=== PATIENT | female | born 1990 | race Caucasian/White ===

== ENCOUNTER 2016-05-27 17:11 | Emergency (ER) | payer MEDICAID, OTHER ==
[2016-05-27] MEDS ORDERED: NS 0.9% 1000 ML* 1,000 ML IV ONE (18:31)
[2016-05-27] MEDS ORDERED: Ondansetron INJ* 2 MG/ML VIAL IV ONE (18:31)
[2016-05-27 19:01] LABS: Hematocrit 32 % (35-47); Hemoglobin 10.7 g/dl (12.0-16.0); Mean Corpuscular HGB Conc 33 g/dl (31-36); Mean Corpuscular Hemoglobin 30 pg (27-31); Mean Corpuscular Volume 90 fL (80-97); Mean Platelet Volume 10 um3 (7.4-10.4); Red Blood Count 3.57 10^6/ul (4.0-5.4); Red Cell Distribution Width 14 % (10.5-15); White Blood Count 7.2 10^3/ul (3.5-10.8)
[2016-05-27 19:15] LABS: Albumin 3.1 g/dL (3.2-5.2); BUN/Creatinine Ratio 13.5 (8-20); Calcium 8.2 mg/dL (8.6-10.3); EGFR African American 184.8 (>60); EGFR Non-African American 143.7 (>60); Globulin 3.8 g/dL (2-4); Potassium 3.2 mmol/L (3.5-5.0); Total Bilirubin 0.2 mg/dL (0.2-1.0); Total Protein 6.9 g/dL (6.4-8.9)
--- NOTE | 2016-05-27 19:49 | ED ---
Cassy Galloway Alok, scribed for Jeni Edwards MD on 05/27/16 at 1856 . Respiratory - HPI Summary HPI Summary: 25 y/o female presents to the ED for URI-like symptoms body aches, nasal congestion, fever, sore throat, productive cough, and N/V. Pt also adds lower back pain and kidney pain aggravated by movement and dysuria. Pt states that her cough had began 3 days ago and that her fever had reached a max of 100.4 F last night. Pt denies any diarrhea. Pt is currently 24 weeks and GPA = 4,3,0. - History of Current Complaint Chief Complaint: EDUpperRespComplaint Stated Complaint: UPPER RESPIRATORY COMPLAINT,VOMITING Time Seen by Provider: 05/27/16 17:45 Hx Obtained From: Patient Onset/Duration: Gradual Onset, Lasting Days, Still Present Timing: Constant Initial Severity: Moderate Current Severity: Moderate Pain Intensity: 7 Character: Cough (Productive) Aggravating Factor(s): Nothing Alleviating Factor(s): Nothing Associated Signs and Symptoms: Fever, Nasal Congestion - Allergy/Home Medications Allergies/Adverse Reactions: Allergies Allergy/AdvReac Type Severity Reaction Status Date / Time Sulfa Antibiotics Allergy Severe Unknown Verified 05/27/16 17:26 Reaction Details Latex Allergy Intermediate Rash Verified 05/27/16 17:26 ivory Allergy Intermediate Rash Uncoded 05/27/16 17:26 PMH/Surg Hx/FS Hx/Imm Hx Endocrine/Hematology History: Denies: Hx Diabetes, Hx Thyroid Disease Cardiovascular History: Denies: Hx Hypertension Respiratory History: Reports: Hx Asthma History: Denies: Hx Kidney Infection, Other Problems/Disorders Psychiatric History: Reports: Hx Depression Denies: Hx Anxiety, Other Psychiatric Issues/Disorders Infectious Disease History: No Infectious Disease History: Denies: Traveled Outside the [place] in Last 30 Days - Social History Occupation: Unemployed Lives: With Family Alcohol Use: None Substance Use Type: Reports: None Smoking Status (MU): Former Smoker Type: Cigarettes Have You Smoked in the Last Year: No Review of Systems Positive: Fever - 100.4 F max Positive: Sore Throat, Nasal Discharge Positive: Cough Positive: Vomiting, Nausea. Negative: Diarrhea Positive: dysuria, flank pain All Other Systems Reviewed And Are Negative: Yes Physical Exam Triage Information Reviewed: Yes Vital Signs On Initial Exam: Initial Vitals Temp Pulse Resp BP Pulse Ox 99.2 F 118 20 110/64 100 05/27/16 17:26 05/27/16 17:26 05/27/16 17:26 05/27/16 17:26 05/27/16 17:26 Vital Signs Reviewed: Yes Appearance: Positive: Well-Appearing, No Pain Distress Skin: Positive: Warm, Skin Color Reflects Adequate Perfusion, Dry Eyes: Positive: EOMI, MICHAEL ENT: Positive: Pharynx normal, Nasal congestion, TMs normal Neck: Positive: Supple, Nontender Respiratory/Lung Sounds: Positive: Clear to Auscultation, Breath Sounds Present. Negative: Rales, Rhonchi, Wheezes Cardiovascular: Positive: RRR. Negative: Murmur, Rub, Other - Gallops Abdomen Description: Positive: Soft, Other: - Left Flank Pain Bowel Sounds: Positive: Present Musculoskeletal: Positive: Strength/ROM Intact. Negative: Edema Left, Edema Right Neurological: Positive: Sensory/Motor Intact, Alert, Oriented to Person Place, Time, CN Intact II-III Psychiatric: Positive: Affect/Mood Appropriate Diagnostics - Vital Signs Vital Signs Temp Pulse Resp BP Pulse Ox 05/27/16 17:26 99.2 F 118 20 110/64 100 - Laboratory Lab Results: Lab Results 05/27/16 05/27/16 05/27/16 Range/Units 18:50 18:50 18:50 WBC 7.2 (3.5-10.8) 10^3/ul RBC 3.57 L (4.0-5.4) 10^6/ul Hgb 10.7 L (12.0-16.0) g/dl Hct 32 L (35-47) % MCV 90 (80-97) fL MCH 30 (27-31) pg MCHC 33 (31-36) g/dl RDW 14 (10.5-15) % Plt Count 162 (150-450) 10^3/ul MPV 10 (7.4-10.4) um3 Neut % (Auto) 79.6 (38-83) % Lymph % (Auto) 10.1 L (25-47) % Kerr % (Auto) 9.3 H (1-9) % Eos % (Auto) 0.8 (0-6) % Baso % (Auto) 0.2 (0-2) % Absolute Neuts (auto) 5.7 (1.5-7.7) 10^3/ul Absolute Lymphs (auto) 0.7 L (1.0-4.8) 10^3/ul Absolute Monos (auto) 0.7 (0-0.8) 10^3/ul Absolute Eos (auto) 0.1 (0-0.6) 10^3/ul Absolute Basos (auto) 0 (0-0.2) 10^3/ul Absolute Nucleated RBC 0.02 10^3/ul Nucleated RBC % 0.3 Sodium 133 (133-145) mmol/L Potassium 3.2 L (3.5-5.0) mmol/L Chloride 101 (101-111) mmol/L Carbon Dioxide 23 (22-32) mmol/L Anion Gap 9 (2-11) mmol/L BUN 7 (6-24) mg/dL Creatinine 0.52 (0.51-0.95) mg/dL Est GFR ( Amer) 184.8 (>60) Est GFR (Non-Af Amer) 143.7 (>60) BUN/Creatinine Ratio 13.5 (8-20) Glucose 82 (70-100) mg/dL Lactic Acid 0.5 (0.5-2.0) mmol/L Calcium 8.2 L (8.6-10.3) mg/dL Total Bilirubin 0.20 (0.2-1.0) mg/dL AST 23 (13-39) U/L ALT 14 (7-52) U/L Alkaline Phosphatase 75 (34-104) U/L Total Protein 6.9 (6.4-8.9) g/dL Albumin 3.1 L (3.2-5.2) g/dL Globulin 3.8 (2-4) g/dL Albumin/Globulin Ratio 0.8 L (1-3) Result Diagrams: 05/27/16 18:50 05/27/16 18:50 Lab Statement: Any lab studies that have been ordered have been reviewed, and results considered in the medical decision making process. Disposition - Course Course Of Treatment: 25 yo female non toxic appearing awaiting a urine and a flu swab for one day of fever and left flank pain with cough and rhinorrhea pt is 24 weeks . pt will be signed out to Dr. Ramirez - Diagnoses Provider Diagnoses: Fever Discharge - Discharge Plan Condition: Stable Disposition: HOME The documentation as recorded by the Cassy lechuga Alok accurately reflects the service I personally performed and the decisions made by me, Jeni Edwards MD.
[2016-05-27] MEDS ORDERED: Oseltamivir CAP* 75 MG PO ONE (20:35)
[2016-05-27 20:59] LABS: Urine Bacteria Absent (Absent); Urine Bilirubin Negative (Negative); Urine Glucose Negative (Negative); Urine Nitrite Negative (Negative)
[2016-05-27 21:06] VITALS: BP 124/67
== END 2016-05-27 21:05 | disposition home or self-care (01) ==
LOC: ED 17:11
DX: R50.9 Fever, unspecified (principal); R09.81 Nasal congestion; R11.2 Nausea with vomiting, unspecified; R06.02 Shortness of breath; R30.0 Dysuria; Z87.891 Personal history of nicotine dependence
CPT/HCPCS: 36415; 80053; 81003; 81015; 83605; 85025; 87040; 87086; 87502; 96374; 99282; A9270-GY

== ENCOUNTER 2016-09-09 07:21 | Inpatient (IN) | payer OTHER ==
[2016-09-09 08:54] LABS: Hematocrit 37 % (35-47); Hemoglobin 12.4 g/dl (12.0-16.0); Mean Corpuscular HGB Conc 34 g/dl (31-36); Mean Corpuscular Hemoglobin 31 pg (27-31); Mean Corpuscular Volume 91 fL (80-97); Mean Platelet Volume 11 um3 (7.4-10.4); Red Blood Count 4.05 10^6/ul (4.0-5.4); Red Cell Distribution Width 15 % (10.5-15); White Blood Count 10.2 10^3/ul (3.5-10.8)
[2016-09-09] MEDS ORDERED: Oxytocin in LR* 20 UNITS/1,000 ML BAG IVPB ONE (09:16)
[2016-09-09] MEDS ORDERED: Oxytocin in LR* 20 UNITS/1,000 ML BAG IVPB SCH (10:00)
[2016-09-09] MEDS ORDERED: OBEPIDURAL* 250 ML ONE (12:04)
[2016-09-09] MEDS ORDERED: Sodium Citrate/Citric Acid* 15 ML UDC PO PRN (12:35)
[2016-09-09] MEDS ORDERED: Famotidine TAB* 20 MG PO PRN (12:35)
[2016-09-09] MEDS ORDERED: Phenylephrine IV* 40 MCG/ML 10 ML SYRINGE IV PUSH PRN ×2 (12:35)
[2016-09-09] MEDS ORDERED: EPHEDrine (Pressors)* 50 MG/ML VIAL IV PUSH PRN ×2 (12:35)
[2016-09-09] MEDS ORDERED: OBEPIDURAL* 250 ML EPIDURAL SCH (13:00)
[2016-09-09] MEDS ORDERED: Dibucaine 1% 28.35 GM TUBE PR PRN (14:29)
[2016-09-09] MEDS ORDERED: Glycerin ADULT SUPP PR PRN (14:29)
[2016-09-09] MEDS ORDERED: Witch Hazel PAD* JAR TOPICAL PRN (14:29)
[2016-09-09] MEDS ORDERED: Acetaminophen TAB* 325 MG PO PRN (14:29)
[2016-09-09] MEDS ORDERED: Simethicone CHEW TAB* 80 MG PO SCH (17:30)
[2016-09-09] MEDS: Docusate CAP* 100 MG PO SCH (19:17)
[2016-09-09] MEDS: Ibuprofen TAB* 600 MG PO PRN (19:18)
[2016-09-10] MEDS: Ibuprofen TAB* 600 MG PO PRN ×3 (04:30→18:07)
[2016-09-10 07:14] LABS: Hematocrit 30 % (35-47); Hemoglobin 9.7 g/dl (12.0-16.0); Mean Corpuscular HGB Conc 33 g/dl (31-36); Mean Corpuscular Hemoglobin 30 pg (27-31); Mean Corpuscular Volume 93 fL (80-97); Mean Platelet Volume 11 um3 (7.4-10.4); Red Cell Distribution Width 15 % (10.5-15); White Blood Count 11.4 10^3/ul (3.5-10.8)
[2016-09-10] MEDS: Ferrous Gluconate TAB* 324 MG TAB PO SCH ×2 (09:06→20:04)
[2016-09-10] MEDS: Docusate CAP* 100 MG PO SCH ×3 (09:06→20:05)
[2016-09-10 19:33] VITALS: BP 96/57
[2016-09-11] MEDS: Ibuprofen TAB* 600 MG PO PRN (00:25)
[2016-09-11] MEDS: Docusate CAP* 100 MG PO SCH (08:27)
[2016-09-11] MEDS: Ferrous Gluconate TAB* 324 MG TAB PO SCH (08:28)
== END 2016-09-11 12:00 | disposition home or self-care (01) | DRG 560 ==
LOC: MCHOBOUT 07:21 → MCHOB 07:42
PROVIDERS: ADMIT Obstetrics & Gynecology; ATTEND Obstetrics & Gynecology
PROC: 10E0XZZ Delivery of Products of Conception, External Approach (ICD-10-PCS; principal; 2016-09-09)
PROC: 3E033VJ Introduction of Other Hormone into Peripheral Vein, Percutaneous Approach (ICD-10-PCS; 2016-09-09)
PROC: 10907ZC Drainage of Amniotic Fluid, Therapeutic from Products of Conception, Via Natural or Artificial Opening (ICD-10-PCS; 2016-09-09)
DX: O69.81X0 Labor and delivery complicated by cord around neck, without compression, not applicable or unspecified (principal); O99.344 Other mental disorders complicating childbirth; F32.9 Major depressive disorder, single episode, unspecified; O90.81 Anemia of the puerperium; D64.9 Anemia, unspecified; Z3A.39 39 weeks gestation of pregnancy; Z37.0 Single live birth
CPT/HCPCS: 36415; 85025; A9270-GY

== ENCOUNTER 2017-04-03 18:20 | Emergency (ER) | payer SELFPAY ==
[2017-04-03 20:50] LABS: ABS Basophils 0 10^3/ul (0-0.2); ABS Eosinophils 0.2 10^3/ul (0-0.6); ABS Lymphocytes 2.4 10^3/ul (1.0-4.8); ABS Monocytes 0.8 10^3/ul (0-0.8); ABS Neutrophils 2.4 10^3/ul (1.5-7.7); ABS Nucleated RBC 0 10^3/ul; Eosinophil % 3.4 % (0-6); Hematocrit 36 % (35-47); Hemoglobin 12.1 g/dl (12.0-16.0); Lymphocyte % 40.8 % (25-47); Mean Corpuscular HGB Conc 34 g/dl (31-36); Mean Corpuscular Hemoglobin 29 pg (27-31); Mean Corpuscular Volume 87 fL (80-97); Mean Platelet Volume 9 um3 (7.4-10.4); Nucleated Red Blood Cells % 0.1; Platelet Count 276 10^3/ul (150-450); Red Blood Count 4.11 10^6/ul (4.0-5.4); Red Cell Distribution Width 17 % (10.5-15); White Blood Count 5.9 10^3/ul (3.5-10.8)
[2017-04-03 21:00] LABS: Urine Appearance Cloudy; Urine Blood Negative (Negative); Urine Color Yellow; Urine Ketones Trace (Negative); Urine Protein Negative (Negative); Urine Specific Gravity 1.032 (1.010-1.030); Urine Urobilinogen Negative (Negative)
[2017-04-03 21:02] LABS: EGFR Non-African American 99.5 (>60)
[2017-04-03] MEDS ORDERED: Ketorolac INJ* 30 MG/ML 1 ML VIAL IV PUSH ONE (21:47)
[2017-04-03] MEDS ORDERED: NS 0.9% 1000 ML* 1,000 ML IV ONE (21:47)
[2017-04-03] MEDS ORDERED: Ketorolac INJ* 30 MG/ML 1 ML VIAL ONE (21:48)
[2017-04-03] MEDS ORDERED: Cyclobenzaprine TAB* 10 MG PO ONE (23:28)
[2017-04-03 23:47] VITALS: BP 111/74
--- NOTE | 2017-04-04 06:55 | ED ---
Kurtis Galloway Angela, scribed for Yury Newell MD on 04/03/17 at 2148 . Abdominal Pain/Female - HPI Summary HPI Summary: This pt is a 26 y/o female presenting to [facility] c/o left sided flank pain since last night. Pt reports her pain does not radiate. She states she now has bilateral flank pain. Her pain is aggravated with movement. She additionally notes she had hematuria yesterday. Pt denies dysuria, foul smelling urine, nausea, vomiting, diarrhea, fever, cough, congestion. Pt notes this pain feels like it is in between a UTI and kidney stone. LMP: 2 weeks ago. PMHx: Left kidney is smaller than the right, kidney stones, UTI. Pt states she has Mirena IUD placed. - History of Current Complaint Chief Complaint: EDFlankPain Stated Complaint: FLANK PAIN Time Seen by Provider: 04/03/17 21:36 Hx Obtained From: Patient Onset/Duration: Lasting Hours, Still Present Timing: Hours Severity Currently: Severe Pain Intensity: 8 Pain Scale Used: 0-10 Numeric Location: Flank - left Radiates: No Aggravating Factor(s): Movement Alleviating Factor(s): Nothing Associated Signs and Symptoms: Positive: Urinary Symptoms - POS: hematuria, Other: - NEG: dysuria. Negative: Fever, Cough, Nausea, Vomiting, Diarrhea Allergies/Adverse Reactions: Allergies Allergy/AdvReac Type Severity Reaction Status Date / Time Sulfa Antibiotics Allergy Severe Difficulty Verified 09/01/16 12:03 Breathing/Wheezing Latex Allergy Intermediate Rash Verified 05/27/16 17:26 ivory Allergy Intermediate Rash Uncoded 05/27/16 17:26 PMH/Surg Hx/FS Hx/Imm Hx Endocrine/Hematology History: Denies: Hx Diabetes, Hx Thyroid Disease Cardiovascular History: Denies: Hx Hypertension Respiratory History: Reports: Hx Asthma History: Reports: Hx Kidney Stones, Other Problems/Disorders - UTI Denies: Hx Kidney Infection Psychiatric History: Reports: Hx Depression Denies: Hx Anxiety, Other Psychiatric Issues/Disorders Infectious Disease History: No Infectious Disease History: Denies: Traveled Outside the [place] in Last 30 Days - Family History Known Family History: Positive: Hypertension - maternal grandmother, Diabetes - maternal grandmother, Other Family History: Brother: Scoliosis. Mother: Hep B - Social History Alcohol Use: None Substance Use Type: Reports: None Smoking Status (MU): Former Smoker Type: Cigarettes Have You Smoked in the Last Year: No Review of Systems Negative: Fever, Chills Negative: Other - congestion Negative: Cough Negative: Vomiting, Diarrhea, Nausea Positive: flank pain - left, hematuria. Negative: dysuria All Other Systems Reviewed And Are Negative: Yes Physical Exam - Summary Physical Exam Summary: Appearance: Well appearing, no pain distress Skin: warm, dry, reflects adequate perfusion Head/face: normal Eyes: EOMI, MICHAEL ENT: normal. Moist mucous membranes. Neck: supple, non-tender Respiratory: CTA, breath sounds present Cardiovascular: RRR, pulses symmetrical Abdomen: soft. nontender. Bowel: present Musculoskeletal: normal, strength/ROM intact. Left sided CVA tenderness. Neuro: normal, sensory motor intact, A&Ox3 Triage Information Reviewed: Yes Vital Signs On Initial Exam: Initial Vitals Temp Pulse Resp BP Pulse Ox 98.7 F 76 18 115/71 99 04/03/17 18:23 04/03/17 18:23 04/03/17 18:23 04/03/17 18:23 04/03/17 18:23 Vital Signs Reviewed: Yes Diagnostics - Vital Signs Vital Signs Temp Pulse Resp BP Pulse Ox 04/03/17 18:23 98.7 F 76 18 115/71 99 - Laboratory Lab Results: Lab Results 04/03/17 04/03/17 04/03/17 Range/Units 20:28 20:35 20:35 WBC 5.9 (3.5-10.8) 10^3/ul RBC 4.11 (4.0-5.4) 10^6/ul Hgb 12.1 (12.0-16.0) g/dl Hct 36 (35-47) % MCV 87 (80-97) fL MCH 29 (27-31) pg MCHC 34 (31-36) g/dl RDW 17 H (10.5-15) % Plt Count 276 (150-450) 10^3/ul MPV 9 (7.4-10.4) um3 Neut % (Auto) 41.7 (38-83) % Lymph % (Auto) 40.8 (25-47) % Porter % (Auto) 13.7 H (1-9) % Eos % (Auto) 3.4 (0-6) % Baso % (Auto) 0.4 (0-2) % Absolute Neuts (auto) 2.4 (1.5-7.7) 10^3/ul Absolute Lymphs (auto) 2.4 (1.0-4.8) 10^3/ul Absolute Monos (auto) 0.8 (0-0.8) 10^3/ul Absolute Eos (auto) 0.2 (0-0.6) 10^3/ul Absolute Basos (auto) 0 (0-0.2) 10^3/ul Absolute Nucleated RBC 0 10^3/ul Nucleated RBC % 0.1 Sodium 135 (133-145) mmol/L Potassium 4.0 (3.5-5.0) mmol/L Chloride 102 (101-111) mmol/L Carbon Dioxide 29 (22-32) mmol/L Anion Gap 4 (2-11) mmol/L BUN 13 (6-24) mg/dL Creatinine 0.71 (0.51-0.95) mg/dL Est GFR ( Amer) 128.0 (>60) Est GFR (Non-Af Amer) 99.5 (>60) BUN/Creatinine Ratio 18.3 (8-20) Glucose 91 (70-100) mg/dL Lactic Acid (0.5-2.0) mmol/L Calcium 8.8 (8.6-10.3) mg/dL Total Bilirubin 0.20 (0.2-1.0) mg/dL AST 18 (13-39) U/L ALT 11 (7-52) U/L Alkaline Phosphatase 93 (34-104) U/L C-Reactive Protein 5.57 H (< 5.00) mg/L Total Protein 7.6 (6.4-8.9) g/dL Albumin 3.9 (3.2-5.2) g/dL Globulin 3.7 (2-4) g/dL Albumin/Globulin Ratio 1.1 (1-3) Lipase 27 (11.0-82.0) U/L Urine Color Yellow Urine Appearance Cloudy Urine pH 5.0 (5-9) Ur Specific [place] 1.032 H (1.010-1.030) Urine Protein Negative (Negative) Urine Ketones Trace H (Negative) Urine Blood Negative (Negative) Urine Nitrate Negative (Negative) Urine Bilirubin Negative (Negative) Urine Urobilinogen Negative (Negative) Ur Leukocyte Esterase Trace H (Negative) Urine WBC (Auto) 1+(6-10/hpf) H (Absent) Urine RBC (Auto) Absent (Absent) Ur Squamous Epith Cells Present H (Absent) Urine Bacteria Absent (Absent) Urine Sperm Present H (Absent) Urine Glucose Negative (Negative) Urine Ascorbic Acid * H (Negative) 04/03/17 Range/Units 20:35 WBC (3.5-10.8) 10^3/ul RBC (4.0-5.4) 10^6/ul Hgb (12.0-16.0) g/dl Hct (35-47) % MCV (80-97) fL MCH (27-31) pg MCHC (31-36) g/dl RDW (10.5-15) % Plt Count (150-450) 10^3/ul MPV (7.4-10.4) um3 Neut % (Auto) (38-83) % Lymph % (Auto) (25-47) % Porter % (Auto) (1-9) % Eos % (Auto) (0-6) % Baso % (Auto) (0-2) % Absolute Neuts (auto) (1.5-7.7) 10^3/ul Absolute Lymphs (auto) (1.0-4.8) 10^3/ul Absolute Monos (auto) (0-0.8) 10^3/ul Absolute Eos (auto) (0-0.6) 10^3/ul Absolute Basos (auto) (0-0.2) 10^3/ul Absolute Nucleated RBC 10^3/ul Nucleated RBC % Sodium (133-145) mmol/L Potassium (3.5-5.0) mmol/L Chloride (101-111) mmol/L Carbon Dioxide (22-32) mmol/L Anion Gap (2-11) mmol/L BUN (6-24) mg/dL Creatinine (0.51-0.95) mg/dL Est GFR ( Amer) (>60) Est GFR (Non-Af Amer) (>60) BUN/Creatinine Ratio (8-20) Glucose (70-100) mg/dL Lactic Acid 0.6 (0.5-2.0) mmol/L Calcium (8.6-10.3) mg/dL Total Bilirubin (0.2-1.0) mg/dL AST (13-39) U/L ALT (7-52) U/L Alkaline Phosphatase (34-104) U/L C-Reactive Protein (< 5.00) mg/L Total Protein (6.4-8.9) g/dL Albumin (3.2-5.2) g/dL Globulin (2-4) g/dL Albumin/Globulin Ratio (1-3) Lipase (11.0-82.0) U/L Urine Color Urine Appearance Urine pH (5-9) Ur Specific [place] (1.010-1.030) Urine Protein (Negative) Urine Ketones (Negative) Urine Blood (Negative) Urine Nitrate (Negative) Urine Bilirubin (Negative) Urine Urobilinogen (Negative) Ur Leukocyte Esterase (Negative) Urine WBC (Auto) (Absent) Urine RBC (Auto) (Absent) Ur Squamous Epith Cells (Absent) Urine Bacteria (Absent) Urine Sperm (Absent) Urine Glucose (Negative) Urine Ascorbic Acid (Negative) Result Diagrams: 04/03/17 20:35 04/03/17 20:35 Lab Statement: Any lab studies that have been ordered have been reviewed, and results considered in the medical decision making process. - CT Abdomen/Pelvis CT CT Interpretation: No Acute Changes - IMPRESSION: Bilateral kidnys are unremarkable. No renal or ureter stone or obstruction is seen. No stones present in the urinary bladder lumen. IUD is in place in normal expected position. No adnexal mass, cyst, or abscess is seen. No bowel obstruction, perforation, free air or free fluid is demonstrated. Contracted gallbladder. No gallstones or bile duct dilatation demonstrated. No abnormal bowel wall thickening is noted to suggest colitis, diverticulitis, or inflammatory bowel disease. Normal appendix is visualized without evidenc of acute inflammation. Dr. Newell has reviewed this radiology report. CT Interpretation Completed By: Radiologist Re-Evaluation - Re-Evaluation First Eval Re-Evaluation Time: 23:25 Comment: Pt reports she is feeling better. I reviewed the CT results with the pt. Abdominal Pain Fem Course/Dx - Course Course Of Treatment: Hx of stones with flank pain. CT neg. Some minor inflammatory changes in urine. Start nitrofurantoin. Pain gone here. No pelvic discomfort. IUD in approp place. - Diagnoses Provider Diagnoses: Lumbar back pain, Flank pain Discharge - Discharge Plan Condition: Good Disposition: HOME Prescriptions: Cyclobenzaprine HCl [Flexeril 5 mg (NF)] 5 mg PO TID PRN #12 tab PRN Reason: Pain Patient Education Materials: Low Back Strain (ED) Forms: *Work Release Referrals: [facility] REFERRAL [Outside] Additional Instructions: Drink plenty of fluids, Ice, massage and range of motion exercises may help. Tylenol for mild discomfort. Return if worse, fever, vomiting or other concerns. The documentation as recorded by the Kurtis lechuga Angela accurately reflects the service I personally performed and the decisions made by me, Yury Newell MD.
--- NOTE | 2017-04-04 07:30 | RAD ---
INDICATION: Right flank abdominal pain. COMPARISON: Comparison is made to prior renal ultrasound from February 05, 2012. TECHNIQUE: A CT scan of the abdomen and pelvis was performed without intravenous or oral contrast. Contiguous axial sections were obtained from the lung bases through the symphysis pubis. Images were reconstructed in the coronal and sagittal planes. FINDINGS: The lung bases are clear. No pleural effusion is present. The liver and spleen are normal in size without significant focal abnormality on this noncontrast study. The gallbladder appears contracted. No calcified gallstones are seen. No pancreatic ductal distention or calcifications are seen. No inflammation is noted. The adrenal glands and kidneys are normal in size. No renal calculi or hydronephrosis is seen. No ureteral or bladder calculi are seen. The aorta is normal in caliber without significant calcific plaque. No significant enlarged retroperitoneal lymph nodes are seen. The stomach, small and large bowel appear nondistended. The appendix is within normal limits. There is mild descending and sigmoid diverticulosis without evidence for diverticulitis or colitis. There is a moderate amount retained stool present throughout the colon. There is a small periumbilical hernia containing fat. The uterus is anteverted and normal in size. There is an IUD which present. No free intraperitoneal air or fluid is seen. No significant focal osseous abnormality is seen. IMPRESSION: NO EVIDENCE FOR ACUTE INTRA-ABDOMINAL ABNORMALITY OR CAUSE FOR THE PATIENT'S ABDOMINAL PAIN IS SEEN.
== END 2017-04-03 23:46 | disposition home or self-care (01) ==
LOC: ED 18:20
DX: M54.5 Low back pain (principal); R10.84 Generalized abdominal pain; R31.9 Hematuria, unspecified; R30.0 Dysuria; Z87.442 Personal history of urinary calculi
CPT/HCPCS: 36415; 74176; 80053; 81003; 81015; 83605; 83690; 85025; 86140; 87086; 99283; A9270-GY; J1885

== ENCOUNTER 2017-05-23 17:26 | Emergency (ER) | payer SELFPAY ==
[2017-05-23] MEDS ORDERED: Ondansetron ODT TAB* 4 MG PO ONE (18:10)
[2017-05-23] MEDS ORDERED: Acetaminophen ADULT LIQ* 650 MG/20.3 ML UDC PO ONE (18:10)
--- NOTE | 2017-05-23 20:06 | ED ---
Influenza-Like Illness - HPI Summary HPI Summary: Patient here with "flulike" symptoms since yesterday. She reports fever, minor cough, and sore throat which is worse today. She is having significant dysphasia to the point where she's not tried any meds for her fever as a hurts too much to swallow. She is handling her secretions well and denies respiratory distress. She also reports myalgias, headache, decreased appetite and overall fatigue. Denies rashes, neck stiffness, nausea, vomiting, diarrhea. Admits she had influenza earlier this year. She did not have her influenza vaccine as this "causes me to get the flu" but all other immunizations are up-to-date. She last had Tylenol yesterday morning. She also has a history of asthma however reports she does not feel that she has asthma symptoms over the little chest tightness at this point in time. She has not tried an albuterol inhaler however encourages her to try this. She has 4 children, 2 and school (>2 y.o.) and 2 at home (<2 y.o.). Her 8-month- old is here tonight as well with 3 day history of mild URI symptoms without a fever. - History of Current Complaint Chief Complaint: EDFluSymptoms Time Seen by Provider: 05/23/17 17:46 Hx Obtained From: Patient - - Allergy/Home Medications Allergies/Adverse Reactions: Allergies Allergy/AdvReac Type Severity Reaction Status Date / Time ibuprofen Allergy Hives/Diff. Verified 05/23/17 18:39 Breathing/I tching latex Allergy Rash Verified 05/23/17 17:31 Sulfa (Sulfonamide Allergy Anaphylatic Verified 05/23/17 17:31 Antibiotics) Shock ivory Allergy Intermediate Rash Uncoded 05/27/16 17:26 PMH/Surg Hx/FS Hx/Imm Hx Previously Healthy: Yes Endocrine/Hematology History: Denies: Hx Diabetes, Hx Thyroid Disease Cardiovascular History: Denies: Hx Hypertension Respiratory History: Reports: Hx Asthma - well controlled History: Reports: Hx Kidney Stones, Other Problems/Disorders - UTI Denies: Hx Kidney Infection Sensory History: Reports: Hx Contacts or Glasses Opthamlomology History: Reports: Hx Contacts or Glasses Psychiatric History: Reports: Hx Depression Denies: Hx Anxiety, Other Psychiatric Issues/Disorders - Immunization History Date of Influenza Vaccine: fall 2016 Immunizations Up to Date: Yes - EXCEPT influenza Infectious Disease History: No Infectious Disease History: Denies: Traveled Outside the [place] in Last 30 Days - Family History Known Family History: Positive: Hypertension - maternal grandmother, Diabetes - maternal grandmother, Other Family History: Brother: Scoliosis. Mother: Hep B - Social History Occupation: Unemployed - stay at home mom Lives: With Family Alcohol Use: Rare Hx Substance Use: No Substance Use Type: Reports: None Hx Tobacco Use: No - not currently Smoking Status (MU): Former Smoker Type: Cigarettes Have You Smoked in the Last Year: No Review of Systems Constitutional: Negative Positive: Fever, Fatigue Eyes: Negative Positive: Sore Throat. Negative: Dental Pain, Ear Ache, Nasal Discharge Cardiovascular: Negative Negative: Palpitations, Chest Pain Positive: Cough - mild, intermittent Gastrointestinal: Negative Positive: no symptoms reported Positive: Arthralgia, Myalgia Skin: Negative Positive: Headache. Negative: Weakness, Paresthesia, Numbness, Syncope, Slurred Speech Psychological: Normal All Other Systems Reviewed And Are Negative: Yes Physical Exam Triage Information Reviewed: Yes Vital Signs On Initial Exam: Initial Vitals Temp Pulse Resp BP Pulse Ox 99.1 F 117 16 111/72 100 05/23/17 17:31 05/23/17 17:31 05/23/17 17:31 05/23/17 17:31 05/23/17 17:31 Vital Signs Reviewed: Yes Appearance: Positive: Well-Appearing - appears mildly fatigued but otherwise conversing well with strength to move, etc, Well-Nourished, Pain Distress - mild Skin: Positive: Warm, Skin Color Reflects Adequate Perfusion, Dry - no rash Head/Face: Positive: Normal Head/Face Inspection Eyes: Positive: Normal, EOMI, Conjunctiva Clear. Negative: Conjunctiva Inflammed, Discharge ENT: Positive: Normal ENT inspection, Hearing grossly normal, TMs normal, Tonsillar swelling - edema (+2-3, cryptic) w/ mild erythema, Uvula midline. Negative: Nasal congestion, Nasal drainage, Tonsillar exudate, Trismus, Muffled voice, Hoarse voice, Sinus tenderness Neck: Positive: Supple, No Lymphadenopathy, Tenderness @ - CC LN's Respiratory/Lung Sounds: Positive: Clear to Auscultation, Breath Sounds Present. Negative: Decreased Breath Sounds, Rales, Rhonchi, Stridor, Tracheal Deviation, Wheezes, Unable to speak in full sentences, Fatigue Cardiovascular: Positive: Normal, Pulses are Symmetrical in both Upper and Lower Extremities, Tachycardia, S1, S2. Negative: Murmur, Rub Abdomen Description: Positive: Nontender, No Organomegaly, Soft Bowel Sounds: Positive: Present Musculoskeletal: Positive: Normal, Strength/ROM Intact Neurological: Positive: Normal, Sensory/Motor Intact, Alert, Oriented to Person Place, Time, CN Intact II-III Psychiatric: Positive: Normal Diagnostics - Vital Signs Vital Signs Temp Pulse Resp BP Pulse Ox 05/23/17 19:35 98.5 F 82 16 112/72 96 05/23/17 17:31 99.1 F 117 16 111/72 100 - Laboratory Lab Results: Lab Results 05/23/17 05/23/17 Range/Units 19:03 19:18 Influenza A (Rapid) Negative (Negative) Influenza B (Rapid) Negative (Negative) Group A Strep Rapid Positive A (Negative) Lab Statement: Any lab studies that have been ordered have been reviewed, and results considered in the medical decision making process. Flu Symptom Course/Dx - Course Course Of Treatment: Patient presents with fever and upper respiratory symptoms. Her influenza swab was negative however her strep swab is positive. Will initiate treatment and educated on supportive care. Advised on danger signs and symptoms of when to return to the emergency department. Patient agrees with plan. - Diagnoses Provider Diagnoses: Strep pharyngitis Discharge - Discharge Plan Condition: Stable Disposition: HOME Prescriptions: Albuterol HFA INHALER* [Ventolin HFA Inhaler*] 2 puff INH Q6H PRN #1 mdi PRN Reason: Cough Amoxicillin PO (*) [Amoxicillin 500 MG CAP*] 500 mg PO Q12H #20 cap Patient Education Materials: Strep Throat (ED) Referrals: No Primary Care Phys,NOPCP [Primary Care Provider] - Additional Instructions: You appear to have strep throat. Please review the education information provided for supportive care and treatment of symptoms. Compelte antibiotics as directed. If your symptoms persist or worsen beyond 4 days, follow up with her primary care physician. If you have difficulty breathing or swallowing in the meantime, return to the emergency department. NOTE: An albuterol inhaler was also sent to the pharmacy in the event that you need this for chest tightness, persistent cough, wheezing. Again if this is not controlled with albuterol, please return to the emergency department.
[2017-05-23 20:32] VITALS: BP 108/61
== END 2017-05-23 20:30 | disposition home or self-care (01) ==
LOC: ED 17:26
DX: J02.0 Streptococcal pharyngitis (principal); F32.9 Major depressive disorder, single episode, unspecified; Z87.891 Personal history of nicotine dependence
CPT/HCPCS: 87502; 87651; 99282; A9270-GY

== ENCOUNTER 2017-11-16 16:54 | Emergency (ER) | payer MEDICAID, OTHER ==
--- NOTE | 2017-11-16 17:50 | ED ---
- HPI Summary HPI Summary: This patient is a 27 year old F presenting to [facility] accompanied by her partner with a chief complaint of ABD pain that began 2 days ago that was worse today. The patient rates the pain 8/10 in severity. Patient reports dysuria and lower back pressure. Pt is 30 weeks . - History of Current Complaint Chief Complaint: EDAbdPain Stated Complaint: 7 MOS PREG/PAIN IN LOWER ABD & BACK Time Seen by Provider: 11/16/17 17:27 Hx Obtained From: Patient Chief Complaint: Pain, Other: - cocern Onset/Duration: Still Present Timing: Constant Severity: Severe Current Severity: Severe Pain Intensity: 8 Location of Pain: Suprapubic Character: Burning, Cramping Associated Signs and Symptoms: Positive: Other: - dysuria and lower back pressure - Assessment SAB: 0 IEA: 0 - Additional Pertinent History Maternal Blood Type and Rh: O Positive - Allergies/Home Medications Allergies/Adverse Reactions: Allergies Allergy/AdvReac Type Severity Reaction Status Date / Time ibuprofen Allergy Severe Hives/Diff. Verified 11/16/17 17:02 Breathing/I tching latex Allergy Severe Rash Verified 11/16/17 17:02 Sulfa (Sulfonamide Allergy Severe Anaphylatic Verified 11/16/17 17:02 Antibiotics) Shock aloe Allergy Intermediate Rash Verified 11/16/17 17:02 ivory Allergy Intermediate Rash Uncoded 11/16/17 17:01 PMH/Surg Hx/FS Hx/Imm Hx Endocrine/Hematology History: Denies: Hx Diabetes, Hx Thyroid Disease Cardiovascular History: Denies: Hx Congestive Heart Failure, Hx Hypertension Respiratory History: Reports: Hx Asthma - well controlled History: Reports: Hx Kidney Stones, Other Problems/Disorders - UTI Denies: Hx Kidney Infection Sensory History: Reports: Hx Contacts or Glasses Opthamlomology History: Reports: Hx Contacts or Glasses Psychiatric History: Reports: Hx Depression Denies: Hx Anxiety, Other Psychiatric Issues/Disorders - Immunization History Date of Influenza Vaccine: fall 2016 Infectious Disease History: No Infectious Disease History: Denies: Traveled Outside the [place] in Last 30 Days - Family History Known Family History: Positive: Hypertension - maternal grandmother, Diabetes - maternal grandmother, Other Family History: Brother: Scoliosis. Mother: Hep B - Social History Alcohol Use: Rare Hx Substance Use: No Substance Use Type: Reports: None Hx Tobacco Use: No - not currently Smoking Status (MU): Former Smoker Type: Cigarettes Have You Smoked in the Last Year: No Review of Systems Positive: Abdominal Pain Positive: dysuria Positive: Other - lower back pressure All Other Systems Reviewed And Are Negative: Yes Physical Exam - Summary Physical Exam Summary: Appearance: The patient is well-nourished in no acute distress and in no acute pain. Skin: The skin is warm and dry and skin color reflects adequate perfusion. HEENT: The head is normocephalic and atraumatic. The pupils are equal and reactive. The conjunctivae are clear and without drainage. Nares are patent and without drainage. Mouth reveals moist mucous membranes and the throat is without erythema and exudate. The external ears are intact. The ear canals are patent and without drainage. The tympanic membranes are intact. Neck: The neck is supple with full range of motion and non-tender. There are no carotid bruits. There is no neck vein distension. Respiratory: Chest is non-tender. Lungs are clear to auscultation and breath sounds are symmetrical and equal. Cardiovascular: Heart is regular rate and rhythm. There is no murmur or rub auscultated. There is no peripheral edema and pulses are symmetrical and equal. Abdomen: The abdomen is soft and TTP in the suprapubic region. The uterus is non tender and soft. There are normal bowel sounds heard in all four quadrants and there is no organomegaly palpated. Musculoskeletal: There is no back tenderness noted. Extremities are non-tender with full range of motion. There is good capillary refill. There is no peripheral edema or calf tenderness elicited. Neurological: Patient is alert and oriented to person, place and time. The patient has symmetrical motor strength in all four extremities. Cranial nerves are grossly intact. Deep tendon reflexes are symmetrical and equal in all four extremities. Psychiatric: The patient has an appropriate affect and does not exhibit any anxiety or depression. - Physical Exam Triage Information Reviewed: Yes Vital Signs Reviewed: Yes Diagnostics - Vital Signs Vital Signs Temp Pulse Resp BP Pulse Ox 11/16/17 17:17 98 120/79 99 11/16/17 17:16 102 99 11/16/17 16:58 97.6 F 96 16 116/70 99 - Laboratory Lab Statement: Any lab studies that have been ordered have been reviewed, and results considered in the medical decision making process. Course/Dx - Course Course Of Treatment: Ms. Donato presented with a day or so of dysuria and suprapubic pain. Her uterus was nontender and soft but she did have some suprapubic tenderness. She was placed on the monitor as she is 30 weeks . There were good heart tones and no contractions. Her UA did show signs of infection and she'll be treated with Macrodantin for 5 days. - Diagnoses Provider Diagnoses: UTI (urinary tract infection) Discharge - Sign-Out/Discharge Documenting (check all that apply): Patient Departure - Discharge Plan Condition: Stable Disposition: HOME Prescriptions: Nitrofurantoin Monohyd/M-Cryst [Macrobid 100 mg Capsule] 100 mg PO BID #10 cap Patient Education Materials: Urinary Tract Infection in Women (DC) Referrals: Katie Loera MD [Primary Care Provider] - Additional Instructions: Please follow up with your [facility] doctor this week. RETURN TO THE EMERGENCY DEPARTMENT FOR CHANGING OR WORSENING SYMPTOMS - Billing Disposition and Condition Condition: STABLE Disposition: Home - Attestation Statements Document Initiated by Dequan: Yes Documenting Scribe: Louie Khalil Provider For Whom Dequan is Documenting (Include Credential): Taurus Barrera MD Scribe Attestation: Louie Galloway , scribed for Taurus Barrera MD on 11/16/17 at 1914. Scribe Documentation Reviewed: Yes Provider Attestation: The documentation as recorded by the Louie lechuga accurately reflects the service I personally performed and the decisions made by me, Taurus Barrera MD
[2017-11-16 17:55] LABS: Urine Appearance Cloudy; Urine Blood Negative (Negative); Urine Color Amber; Urine Ketones Negative (Negative); Urine Protein 1+(30 mg/dL) (Negative); Urine Red Blood Cell 3+(>10/hpf) (Absent); Urine Specific Gravity 1.024 (1.010-1.030); Urine Urobilinogen Negative (Negative); Urine White Blood Cell 3+(>20/hpf) (Absent)
[2017-11-16] MEDS ORDERED: Nitrofurantoin Macrocrystals* 50 MG CAP PO ONE (18:50)
[2017-11-16 18:53] VITALS: BP 115/74
== END 2017-11-16 19:00 | disposition home or self-care (01) ==
LOC: ED 16:54
DX: O23.43 Unspecified infection of urinary tract in pregnancy, third trimester (principal); Z3A.30 30 weeks gestation of pregnancy; Z87.891 Personal history of nicotine dependence; Z88.6 Allergy status to analgesic agent; Z88.3 Allergy status to other anti-infective agents
CPT/HCPCS: 81003; 81015; 87086; 99283; A9270-GY

== ENCOUNTER 2018-02-17 07:23 | Inpatient (IN) | payer OTHER ==
[2018-02-17] MEDS ORDERED: Witch Hazel PAD* JAR TOPICAL PRN (07:44)
[2018-02-17] MEDS ORDERED: Glycerin ADULT SUPP PR PRN (07:44)
[2018-02-17] MEDS ORDERED: Dibucaine 1% 28.35 GM TUBE PR PRN (07:44)
[2018-02-17] MEDS ORDERED: Simethicone TAB* 80 MG TAB.CHEW PO SCH (08:30)
--- NOTE | 2018-02-17 09:25 | PROCNOTE ---
[facility] OB: Delivery Note - Delivery A Date of : 02/17/18 Time of : 07:29 Gestational Age in Weeks and Days at Delivery: 39 Weeks and 4 Days Delivery Method: Spontaneous Vaginal Labor: Spontaneous Amniotic Fluid: Clear Estimated Blood Loss: 200 Anesthesia/Analgesia: None Delivered By: Shelley Gonzalez - Nursery Level of Nursery: Regular/Bedside - Perineum Perineal Injury: Abrasion Only - Not Repaired Perineal Injury Comment: no repair needed per Dr Pierre - Events Delivery Events of Note: None Apply, Precipitous Delivery - called at 718 / arrival post delivery /.delivered placenta
--- NOTE | 2018-02-17 09:29 | HP ---
General Information - Reason for Visit labor - General Information Maternal Age: 27 Grav: 5 Para: 4 SAB: 0 IEA: 0 Estimated Due Date: 02/20/18 Determined By: Early Ultrasound Maternal Blood Type and Rh: O Positive - Results this Serology/RPR Result: Non-Reactive Rubella Result: Immune HBsAg Result: Negative HIV Result: Negative GBS Culture Result: Negative Past Medical History Delivery History: See Records Pertinent Past Medical History: See Records - anemia Pertinent Past Surgical History: See Records Pertinent Family History: See Records - Antepartal Records Antepartal Records: Reviewed, Complicated by: - anemia/ late care Review of Systems Movement: Normal Exam Allergies/Adverse Reactions: Allergies ibuprofen Allergy (Severe, Verified 02/17/18 09:06) Hives/Diff.Breathing/Itching latex Allergy (Severe, Verified 02/17/18 09:06) Rash Sulfa (Sulfonamide Antibiotics) Allergy (Severe, Verified 02/17/18 09:06) Anaphylatic Shock aloe Allergy (Intermediate, Verified 02/17/18 09:06) Rash ivory Allergy (Intermediate, Uncoded 02/17/18 09:06) Rash Vital Signs 02/17/18 09:07 Temperature 98.1 F Pulse Rate 87 Respiratory 18 Rate Blood Pressure 132/85 (mmHg) - Measurements Height: 5 ft 1.25 in Weight: 184 lb Weight in lbs: 184.987454 Body Mass Index (BMI): 34.4 Pre- Weight: 145 lb Weight Gained This : 39 lbs and 0 ozs - Exam Breast: Breast Exam Deferred Extremities: No Edema Heart: Normal Rhythm/Heart Sounds HEENT: No Significant Findings Lungs: Clear Bilaterally Reflexes: DTR 2+ Thyroid: No Thyromegaly - Abdominal Exam Abdomen Exam: Non-Tender - Ultrasound/Biophysical Profile Ultrasound Status: Not Done Targeted Exam Findings Presenting Part: Vertex Assessment/Plan - Assessment precipitous labor and delivery
[2018-02-17] MEDS: Acetaminophen TAB* 325 MG PO PRN ×2 (09:35→18:16)
[2018-02-17] MEDS: Docusate CAP* 100 MG PO SCH ×3 (09:35→20:41)
[2018-02-17] MEDS ORDERED: Ammonia Inhalant* 1 EA AMP ONE (11:23)
[2018-02-18 07:31] LABS: Hematocrit 35 % (35-47); Hemoglobin 11.5 g/dl (12.0-16.0); Mean Corpuscular HGB Conc 33 g/dl (31-36); Mean Corpuscular Hemoglobin 28 pg (27-31); Mean Corpuscular Volume 86 fL (80-97); Mean Platelet Volume 9.7 fL (7.4-10.4); Platelet Count 203 10^3/ul (150-450); Red Blood Count 4.08 10^6/ul (4.00-5.40); Red Cell Distribution Width 25 % (10.5-15); White Blood Count 10.6 10^3/ul (3.5-10.8)
[2018-02-18 08:17] LABS: ABS Basophils 0 10^3/ul (0-0.2); ABS Eosinophils 0.1 10^3/ul (0-0.6); ABS Lymphocytes 2.2 10^3/ul (1.0-4.8); ABS Monocytes 0.9 10^3/ul (0-0.8); ABS Neutrophils 7.3 10^3/ul (1.5-7.7); ABS Nucleated RBC 0 10^3/ul; Eosinophil % 1.4 %; Lymphocyte % 21.1 %; Nucleated Red Blood Cells % 0.1
[2018-02-18] MEDS ORDERED: Ferrous Gluconate TAB* 324 MG TAB PO SCH (09:00)
[2018-02-18] MEDS: Acetaminophen TAB* 325 MG PO PRN ×3 (10:05→23:49)
[2018-02-18] MEDS: Docusate CAP* 100 MG PO SCH ×3 (10:05→23:49)
[2018-02-18 20:16] VITALS: BP 114/77
[2018-02-19] MEDS: Docusate CAP* 100 MG PO SCH (08:50)
== END 2018-02-19 10:00 | disposition home or self-care (01) | DRG 560 ==
LOC: MCHOBOUT 07:23 → MCHOB 07:27
PROVIDERS: ADMIT Obstetrics & Gynecology; ATTEND Obstetrics & Gynecology
PROC: 10E0XZZ Delivery of Products of Conception, External Approach (ICD-10-PCS; principal; 2018-02-17)
PROC: 4A1HXCZ Monitoring of Products of Conception, Cardiac Rate, External Approach (ICD-10-PCS; 2018-02-17)
DX: O62.3 Precipitate labor (principal); Z37.0 Single live birth; O99.02 Anemia complicating childbirth; O71.82 Other specified trauma to perineum and vulva; Z88.6 Allergy status to analgesic agent; Z91.040 Latex allergy status; Z88.2 Allergy status to sulfonamides; Z91.09 Other allergy status, other than to drugs and biological substances; Z88.8 Allergy status to other drugs, medicaments and biological substances; Z3A.39 39 weeks gestation of pregnancy
CPT/HCPCS: 36415; 85025; A9270-GY